=== PATIENT | male | born 1955 | race Caucasian/White ===

== ENCOUNTER 2021-09-21 11:34 | Outpatient (REF) | payer MEDICAID, SELFPAY ==
[2021-09-21 12:54] LABS: Phenytoin Dilantin 4.2 ug/mL (10.0-20.0)
== END 2021-09-21 11:35 | disposition home or self-care (01) ==
LOC: HO.LAB 11:34
PROVIDERS: PCP Internal Medicine; Visit Provider Psychiatry & Neurology Neurology
DX: R56.9 Unspecified convulsions (principal)
CPT/HCPCS: 36415; 80185